=== PATIENT | male | born 1955 | race Caucasian/White ===

== ENCOUNTER 2017-08-28 07:12 | Day surgery (SDC) | payer OTHER ==
[2017-08-28] MEDS ORDERED: DIPHENHYDRAMINE 50 MG CAP PO (08:30)
[2017-08-28] MEDS ORDERED: DIAZEPAM 5 MG TAB PO (08:30)
[2017-08-28] MEDS ORDERED: SOD CHLORIDE 0.45% 1,000 ML IV (08:30)
[2017-08-28] MEDS ORDERED: FAMOTIDINE 20 MG TAB PO (08:30)
[2017-08-28 08:31] LABS: ADD MAN DIFF? NO
[2017-08-28 08:53] LABS: WHITE BLOOD COUNT 5.3 10^3/ul (4.8-10.8)
[2017-08-28 08:53] LABS: BASOPHILS % 0.6 % (0.0-2.0); EOSINOPHILS # 0.1 10^3/ul (0.0-0.5); EOSINOPHILS % 1.9 % (0.0-7.0); HEMATOCRIT 40.1 % (42.0-52.0); HEMOGLOBIN 13.7 g/dl (14.0-18.0); LYMPHOCYTES # 1.2 10^3/ul (0.8-2.9); LYMPHOCYTES % 22.4 % (15.0-51.0); MEAN CORPUSCULAR HEMOGLOBIN 29.5 pg (29.0-33.0); MEAN CORPUSCULAR HGB CONC 34.2 g/dl (32.0-37.0); MEAN CORPUSCULAR VOLUME 86.4 fl (82.0-101.0); MEAN PLATELET VOLUME 10.1 fl (7.4-10.4); MONOCYTE # 0.4 10^3/ul (0.3-0.9); NEUTROPHIL # 3.5 10^3/ul (1.6-7.5); NEUTROPHILS % 66.7 % (39.0-77.0); PLATELET COUNT 306 10^3/UL (140-415); RED BLOOD COUNT 4.64 10^6/ul (4.70-6.10); RED CELL DISTRIBUTION WIDTH 12.6 % (11.5-14.5)
[2017-08-28] MEDS ORDERED: IODIXANOL LOCM 100 ML BTL (09:00)
[2017-08-28] MEDS ORDERED: LIDOCAINE 1% (MDV) 20 ML INJ (09:00)
[2017-08-28] MEDS ORDERED: MIDAZOLAM 1 MG/ML 2 ML INJ (09:01)
[2017-08-28] MEDS ORDERED: FENTAnyl 50 MCG/ML VIAL (09:01)
[2017-08-28 09:07] LABS: INR 0.96; PARTIAL THROMBOPLASTIN TIME 28.1 Sec (25.0-35.0); PROTIME 12.9 Sec (11.9-14.9)
[2017-08-28 09:15] LABS: ANION GAP 13 (8-16); CARBON DIOXIDE 28 mmol/L (21-31); CHLORIDE 105 mmol/L (97-110); CHOL/HDL RATIO 6.4 RATIO; CHOLESTEROL 186 mg/dl (100-200); GLUCOSE 142 mg/dl (70-220); HDL CHOLESTEROL 29 mg/dl (30-78); LDL CHOLESTEROL,CALCULATED 126 mg/dl; TRIGLYCERIDES 156 mg/dl (0-149)
[2017-08-28 09:16] LABS: BLOOD UREA NITROGEN 15 mg/dl (7-20); CALCIUM 9.1 mg/dl (8.4-10.2); CREATININE 0.69 mg/dl (0.61-1.24); POTASSIUM 3.7 mmol/L (3.5-5.1); SODIUM 142 mmol/L (135-144)
[2017-08-28] MEDS ORDERED: SOD CHLORIDE 0.9% 1,000 ML IV (10:12)
[2017-08-28] MEDS ORDERED: ONDANSETRON 4 MG INJ IV (10:30)
[2017-08-28] MEDS ORDERED: morphine 2 MG INJ IV (10:30)
[2017-08-28] MEDS ORDERED: AL HYDROX/MG HYDROX/SIMETH 30 ML CUP PO (10:30)
[2017-08-28] MEDS ORDERED: ACETAMINOPHEN 325 MG TAB PO (10:30)
== END 2017-08-28 16:30 | disposition home or self-care (01) ==
LOC: SDS 07:12
DX: I25.10 Atherosclerotic heart disease of native coronary artery without angina pectoris (principal); R94.39 Abnormal result of other cardiovascular function study; I10 Essential (primary) hypertension; E78.5 Hyperlipidemia, unspecified
CPT/HCPCS: 71045; 80048; 80061; 82962; 85025; 85610; 85730; 93005; 93454